=== PATIENT | male | born 1995 | race Caucasian/White ===

== ENCOUNTER 2024-02-05 13:09 | Emergency (ER) | payer MEDICAID, SELFPAY ==
--- NOTE | ~2024-02-05 | CT_ITS ---
EXAMINATION: CT HEAD WITHOUT CONTRAST CT FACE WITHOUT CONTRAST CT CERVICAL SPINE WITHOUT CONTRAST CLINICAL INFORMATION: Hockey puck to face. Question fracture. COMPARISON: No relevant prior imaging. TECHNIQUE: Stamp Presser images were obtained. CT imaging of the head, face, and cervical spine was performed without contrast. Data was reformatted into multiplanar images at the acquisition station. This CT examination was performed using dose optimization techniques as appropriate, including one or more of the following: Automated exposure control, iterative reconstruction, and adjustment of technique factors (mA and/or kVp) according to patient size (this includes techniques or standardized protocols for targeted exams where dose is matched to indication/reason for exam). Fleischner Society criteria for the followup of incidental pulmonary nodules was implemented if appropriate. DLP: 1485 mGy-cm. FINDINGS: Head: There is no acute intracranial hemorrhage or abnormal extra-axial collection. No intracranial mass effect or midline shift. Lateral and third ventricles are normal. No hydrocephalus. Martin-white matter differentiation is preserved and there is no evidence of acute territorial infarct. The calvarium and skull base are intact. Mastoid air cells and middle ear cavities are well aerated. Face: There is an acute minimally displaced fracture of the left nasal bone there is also a suspected nondisplaced fracture of the nasal spine. The zygomatic arches and pterygoid processes are intact. There are multiple fractured or luxated mandibular teeth. For instance the left mandibular canine is fracture best visualized on sagittal image 81 of 200 series 24. The central mandibular incisors are posteriorly luxated. The left mandibular incisor is absent. The mandible is otherwise intact. Globes and extraocular muscles are symmetric. No abnormal retrobulbar inflammation or hematoma. Lamina papyracea and orbital floors are intact and there is no evidence of acute orbital blowout fracture. Paranasal sinuses are well aerated and are of the major paranasal sinus and pathways are patent. Cervical spine: Alignment is normal. Vertebral body heights are preserved. No acute fracture. No abnormal prevertebral soft tissue swelling. Grossly no spinal canal compromise. Visualized soft tissues of the neck are normal. No pathologically enlarged cervical lymph nodes. Lung apices are clear. CT/CT head/brain wo IV con IMPRESSION: There is an acute minimally displaced fracture of the left nasal bone and a suspected nondisplaced fracture of the nasal spine. There are multiple fractured or luxated mandibular teeth. Otherwise unremarkable examination. No acute intracranial hemorrhage. No acute cervical spine fracture.
--- NOTE | ~2024-02-05 | CT_ITS ---
EXAMINATION: CT HEAD WITHOUT CONTRAST CT FACE WITHOUT CONTRAST CT CERVICAL SPINE WITHOUT CONTRAST CLINICAL INFORMATION: Hockey puck to face. Question fracture. COMPARISON: No relevant prior imaging. TECHNIQUE: Security Services Manager images were obtained. CT imaging of the head, face, and cervical spine was performed without contrast. Data was reformatted into multiplanar images at the acquisition station. This CT examination was performed using dose optimization techniques as appropriate, including one or more of the following: Automated exposure control, iterative reconstruction, and adjustment of technique factors (mA and/or kVp) according to patient size (this includes techniques or standardized protocols for targeted exams where dose is matched to indication/reason for exam). Fleischner Society criteria for the followup of incidental pulmonary nodules was implemented if appropriate. DLP: 1485 mGy-cm. FINDINGS: Head: There is no acute intracranial hemorrhage or abnormal extra-axial collection. No intracranial mass effect or midline shift. Lateral and third ventricles are normal. No hydrocephalus. Martin-white matter differentiation is preserved and there is no evidence of acute territorial infarct. The calvarium and skull base are intact. Mastoid air cells and middle ear cavities are well aerated. Face: There is an acute minimally displaced fracture of the left nasal bone there is also a suspected nondisplaced fracture of the nasal spine. The zygomatic arches and pterygoid processes are intact. There are multiple fractured or luxated mandibular teeth. For instance the left mandibular canine is fracture best visualized on sagittal image 81 of 200 series 24. The central mandibular incisors are posteriorly luxated. The left mandibular incisor is absent. The mandible is otherwise intact. Globes and extraocular muscles are symmetric. No abnormal retrobulbar inflammation or hematoma. Lamina papyracea and orbital floors are intact and there is no evidence of acute orbital blowout fracture. Paranasal sinuses are well aerated and are of the major paranasal sinus and pathways are patent. Cervical spine: Alignment is normal. Vertebral body heights are preserved. No acute fracture. No abnormal prevertebral soft tissue swelling. Grossly no spinal canal compromise. Visualized soft tissues of the neck are normal. No pathologically enlarged cervical lymph nodes. Lung apices are clear. CT/CT cervical spine wo IV con IMPRESSION: There is an acute minimally displaced fracture of the left nasal bone and a suspected nondisplaced fracture of the nasal spine. There are multiple fractured or luxated mandibular teeth. Otherwise unremarkable examination. No acute intracranial hemorrhage. No acute cervical spine fracture.
[2024-02-05 13:14] VITALS: BP 125/89; PULSE 78; RESP 20; TEMP 36.8; O2SAT 100; BMI 28.0
--- NOTE | 2024-02-05 13:24 | ED_ITS ---
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 He immediately had pain, and bleeding to this area. He denies hitting his head or loss of consciousness. He is reporting 10/10 pain, worsening with movement of his teeth. Denies any headaches, dizziness, blurred vision, chest pain, shortness of breath, abdominal pain, nausea, vomiting or diarrhea. Denies any other complaints or concerns at this time. MD complaint: Dental pain Onset (ago): hour(s) Location: face Radiation: non-radiation Severity: moderate Quality: stabbing Pain Consistency: constant Relieving factors: none Exacerbating factors: none Associated symptoms: denies other symptoms Treatments prior to arrival: none Related Data Allergies Allergy/AdvReac Type Severity Reaction Status Date / Time cephalexin [From Keflex] Allergy Hives Verified 02/05/24 13:19 sulfamethoxazole Allergy Hives Verified 02/05/24 13:19 [From Bactrim] trimethoprim [From Bactrim] Allergy Hives Verified 02/05/24 13:19 Review of Systems 2 Review of Systems: Yes all other systems are reviewed and are negative Constitutional: Constitutional: Reports as per [facility] Past Medical History Attestation statement: The following information was validated with the patient. Social History Social History Advance Directives: No Advance Directives Information Provided: Yes Physical Exam ED Vital Signs: Vital Signs - 24 hr 02/05/24 13:14 02/05/24 14:50 02/05/24 15:59 Temperature 98.3 F Pulse Rate 78 70 Respiratory Rate 20 16 18 Blood Pressure 125/89 Pulse Oximetry 100 96 Oxygen Delivery Method Room Air Room Air 02/05/24 17:05 Temperature 98.5 F Pulse Rate 80 Respiratory Rate 18 Blood Pressure 120/70 Pulse Oximetry 98 Oxygen Delivery Method Room Air BMI result Body Mass Index 28.0 Const General: cooperative, comfortable and no acute distress Orientation/consciousness: patient oriented x3 Limitations: no limitations HENMT Other: No septal hematoma noted tenderness palpation along the nasal bridge. Head: Yes normal to inspection, Yes normocephalic, No Thompson's sign and No hematoma Ears: hearing grossly normal bilaterally and TM's normal bilaterally General nose exam: Normal external nose present Face and sinus: Yes normal facial exam Mouth: Normal oral and palatal mucosa present, oropharynx normal and moist mucous membranes Teeth image: 2 1. Teeth number 23, 24, 25 and 26 are displaced, full tooth exposed roots noted, extremely loose with mild bleeding noted. Exquisitely tender to palpation. Throat: Yes posterior oropharynx normal Eyes General: appearance normal, both eyes and all related structures Eyelids: Yes eyelids normal Conjunctivae: conjunctivae normal Sclerae: sclerae normal Pupils: Equal, round and reactive pupils present EOM: EOMs intact bilaterally Neck Neck: Yes normal visual inspection, Yes full ROM and Yes no lymphadenopathy Lymphatic: no lymphadenopathy noted Chest Chest palpation & inspection: normal inspection of the chest Resp Effort & Inspection: normal respiratory effort and able to speak in complete sentences Auscultation: clear to auscultation bilaterally, no crackles, no rales, no rhonchi and no wheezes Cardio Rate: regular rate Rhythm: regular rhythm Heart sounds: S1 normal heart sound present and S2 normal heart sound present GI Inspection: Yes normal to inspection Skin General skin exam: no rashes or lesions noted Trauma: no lacerations or abrasions Wounds: no wounds Neuro General: patient oriented x3 and moves all extremities Cranial nerves: Yes Equal, round and reactive pupils present Extrem General: Yes normal to inspection Right upper extremity: normal to inspection Left upper extremity: normal to inspection Right lower extremity: normal to inspection Left lower extremity: normal to inspection Course Course Course Narrative: RME: 28 old male brought to the ED for trauma to lower lip. Patient hit by a puck in the face while playing hockey. Frontal lower tooth push back and upper tooth. Some are fake. Patient had the recently placed. We will do facial head cervical spine imaging to make sure there is no jaw fracture. Reevaluation(s) Reevaluation #1: Patient was seen and evaluated by my attending physician, Dr. Latham, recommends paging out to [facility] due to concerns for dental fractures and possible maxillary fracture. CT scan has not been read however given excessive delays and radiology reports, will attempt to transfer prior to receiving official read. Discussed with [facility] who has paging out to the oral surgeon and will return my phone call as soon as possible. Time: 14:36 Reevaluation #2: Discussed case with oral surgeon from [facility], Dr. Mistry. CT facial bones revealing an acute minimally displaced fracture of the left nasal bone and suspected nondisplaced fracture of the nasal spine. There are multiple fractured mandibular teeth. Oral surgeon states that he can not accepted direct admission, and patient would need a general dentist or radio intelligence operator to have this managed in this is something that he does not offer and would not be able to offer within the next 24 hours. He states that the patient may be transferred to [facility]'s Emergency Department for an ED to ED transfer and have a consult performed however states that he does not believe he would be able to fit him in nor do they have the tools to help patient given the circumstances. He recommends reaching out to [facility] for further management. Time: 15:45 Reevaluation #3: Spoke to [facility] transfer line, who accepts ED the ED transfer, accepting physician. Patient's symptoms have improved after receiving fentanyl 50 mcg is x2. Transfer of care initiated. Time: 16:19 Medications Administered Discontinued Medications Generic Name Dose Route Start Last Admin Trade Name Freq PRN Reason Stop Dose Admin Fentanyl 50 mcg 02/05/24 14:34 02/05/24 14:50 Fentanyl Citrate/Pf 100 Mcg/2 Ml Vial IVPUSH 02/05/24 14:35 50 mcg ONCE ONE Administration Protocol Fentanyl 50 mcg 02/05/24 15:08 02/05/24 15:43 Fentanyl Citrate/Pf 100 Mcg/2 Ml Vial IVPUSH 02/05/24 15:09 50 mcg ONCE ONE Administration Protocol Fentanyl 50 mcg 02/05/24 16:21 02/05/24 16:26 Fentanyl Citrate/Pf 100 Mcg/2 Ml Vial IVPUSH 02/05/24 16:22 50 mcg ONCE ONE Administration Protocol Fentanyl 50 mcg 02/05/24 16:57 02/05/24 17:02 Fentanyl Citrate/Pf 100 Mcg/2 Ml Vial IVPUSH 02/05/24 16:58 50 mcg ONCE ONE Administration Protocol Medical Decision Making Medical Decision Making [facility] Narrative: This is a 28-year-old male, with no known medical problems, who presents emergency department after being struck in the face by a hockey-stick. He denies hitting his head or loss of consciousness. On arrival, vital signs within normal limits. Patient with for very loose teeth, with route noted, only hanging on by small amount of gingival tissue. Active bleeding noted. Patient has tenderness palpation along the nasal bridge, no active bleeding. No septal hematoma. Plan: CT head, CT face, cervical spine, pain management. Differential Diagnosis Differential Diagnoses: The differential diagnosis associated with the presentation includes Fracture, dental fracture, mandibular fracture Admission/Observation Consideration of admission/observation: Escalation of care including admission/observation considered Patient requiring transfer of care given that we do not have oral or dental coverage here at the emergency room or [facility] Consult Healthcare Provider Management of the patient was discussed with: Teletypewriter Operator See MDM Lab Data [facility] Lab Attestation statement: I reviewed the patient's lab results. No leukocytosis, stable H&H, chemistry within normal limits, slight elevation in his liver enzymes, AST 93, ALT 49. O-positive blood type. 02/05/24 14:40 02/05/24 14:40 Labs: Lab Results 02/05/24 02/05/24 Range/Units 14:40 14:41 WBC 8.0 (4.8-10.8) X10*3/uL RBC 5.29 (4.60-5.80) X10*6/uL Hgb 15.6 (14.0-18.0) g/dl Hct 44.9 (42.0-52.0) % MCV 84.9 (80.0-98.0) fL MCH 29.5 (27.0-33.0) pg MCHC 34.7 (31.0-36.0) g/dl RDW 13.2 (11.0-16.0) % Plt Count 237 (160-400) X10*3/uL MPV 10.5 (9.4-12.4) fL Immature Gran % (Auto) 0.3 (0.0-0.4) % Neut % (Auto) 73.1 H (45-73) % Lymph % (Auto) 17.8 L (20-40) % [place] % (Auto) 7.3 (2-11) % Eos % (Auto) 0.6 (0-4) % Baso % (Auto) 0.9 (0-2) % Lymph # (Auto) 1.4 (1.2-4.9) X10*3/uL [place] # (Auto) 0.6 (0.1-1.2) X10*3/uL Eos # (Auto) 0.1 (0.0-0.4) X10*3/uL Baso # (Auto) 0.1 (0.0-0.2) X10*3/uL Abs Immat Gran (auto) 0.02 (0.00-0.03) X10*3/uL Absolute Neuts (auto) 5.9 (2.0-8.3) x10*3/uL Absolute Nucleated RBC 0.000 (0.0-0.012) X10*3/uL Nucleated RBC % (auto) 0.0 (0.0-0.2) /100WBC Sodium 140 (135-145) mmol/L Potassium 4.6 (3.3-5.1) mmol/L Chloride 107 (96-108) mmol/L Carbon Dioxide 25 (22-29) mmol/L Anion Gap 13 (12-20) BUN 13 (9-16) mg/dL Creatinine 0.94 (0.5-1.4) mg/dL Estim Creat Clear Calc 128.6 Estimated GFR > 60 Random Glucose 88 (60-115) mg/dL Calcium 10.2 (8.4-10.2) mg/dL Total Bilirubin 0.5 (0.0-1.0) mg/dL AST 93 H (5-37) U/L ALT 49 H (0-40) U/L Alkaline Phosphatase 73 (39-117) U/L Total Protein 8.1 H (6.5-8.0) g/dL Albumin 4.7 (3.5-5.0) g/dL Blood Type O Positive Antibody Screen NEGATIVE Independent Interpretation I performed an independent interpretation of an: CT Scan Interpretation: I reviewed the CT cervical spine, CT head, and CT face and agree with the radiology report Radiology Impression Discussion of test interpretation with radiology: I have reviewed the radiologist's reading. Radiologist Impression: CT/CT cervical spine wo IV con IMPRESSION: There is an acute minimally displaced fracture of the left nasal bone and a suspected nondisplaced fracture of the nasal spine. There are multiple fractured or luxated mandibular teeth. Otherwise unremarkable examination. No acute intracranial hemorrhage. No acute cervical spine fracture. Dictated By: Dontae Thomason MD Critical Care Time Critical Care Time Critical Care Time: Yes Total Critical Care Time: 45 Attestation: I have personally provided critical care time exclusive of time spent on separately billable procedures. Time includes review of lab data, radiology results, discussion with consultants, and monitoring for potential decompensation. Intervention performed as documented. Discharge Plan Discharge Clinical Impression: Fracture of multiple teeth, Fracture of nasal bone Patient Disposition: [facility] Transfer Details: [place] ED to ED transfer Interventions: Acute Care Transfer Worksheet (ED) Last Done: 02/05/24 17:05 Discharge Date/Time: 02/05/24 17:09 Print Language: Uruguayan
[2024-02-05 14:46] LABS: MANUAL DIFF FLAG NO
[2024-02-05 14:50] VITALS: RESP 16
[2024-02-05] MEDS: fentaNYL citrate/PF 100 MCG/2 ML VIAL 50 MCG IVPUSH ×4 (14:50→17:02)
[2024-02-05 14:53] LABS: Basophils Absolute Auto 0.1 X10*3/uL (0.0-0.2); Basophils Percent Auto 0.9 % (0-2); Eosinophils Absolute Auto 0.1 X10*3/uL (0.0-0.4); Eosinophils Percent Auto 0.6 % (0-4); Hematocrit 44.9 % (42.0-52.0); Hemoglobin 15.6 g/dl (14.0-18.0); Imm Gran Abs Auto 0.02 X10*3/uL (0.00-0.03); Imm Gran Pct Auto 0.3 % (0.0-0.4); Lymphocytes Absolute Auto 1.4 X10*3/uL (1.2-4.9); Lymphocytes Percent Auto 17.8 % (20-40); Mean Corpuscular HGB Conc 34.7 g/dl (31.0-36.0); Mean Corpuscular Hemoglobin 29.5 pg (27.0-33.0); Mean Corpuscular Volume 84.9 fL (80.0-98.0); Mean Platelet Volume 10.5 fL (9.4-12.4); Monocytes Absolute Auto 0.6 X10*3/uL (0.1-1.2); Monocytes Percent Auto 7.3 % (2-11); Neutrophils Absolute Auto 5.9 x10*3/uL (2.0-8.3); Neutrophils Percent Auto 73.1 % (45-73); Platelet Count 237 X10*3/uL (160-400); Red Blood Count 5.29 X10*6/uL (4.60-5.80); Red Cell Distribution Width 13.2 % (11.0-16.0)
[2024-02-05 15:03] LABS: Alanine Aminotransferase 49 U/L (0-40); Albumin Level 4.7 g/dL (3.5-5.0); Alkaline Phosphatase 73 U/L (39-117); Anion Gap 13 (12-20); Aspartate Amino Transferase 93 U/L (5-37); Bilirubin Total 0.5 mg/dL (0.0-1.0); Blood Urea Nitrogen 13 mg/dL (9-16); Calcium 10.2 mg/dL (8.4-10.2); Carbon Dioxide 25 mmol/L (22-29); Chloride 107 mmol/L (96-108); Creatinine Clr Calc Pharmacy 128.6; Estimated Glomerular Filt Rate > 60; Glucose Random 88 mg/dL (60-115); Potassium 4.6 mmol/L (3.3-5.1); Sodium 140 mmol/L (135-145); Total Protein 8.1 g/dL (6.5-8.0)
[2024-02-05 15:59] VITALS: PULSE 70; RESP 18; O2SAT 96
[2024-02-05 17:05] VITALS: BP 120/70; PULSE 80; RESP 18; TEMP 36.9; O2SAT 98
== END 2024-02-05 17:09 | disposition short-term general hospital (02) ==
PROVIDERS: Physician Assistant Medical; Emergency Provider Student in an Organized Health Care Education/Training Program; PCP Family Medicine
DX: S02.2XXA Fracture of nasal bones, initial encounter for closed fracture (principal); S02.5XXA Fracture of tooth (traumatic), initial encounter for closed fracture; R51.9 Headache, unspecified; M54.2 Cervicalgia; Y29.XXXA Contact with blunt object, undetermined intent, initial encounter; Y93.22 Activity, ice hockey; Y92.330 Ice skating rink (indoor) (outdoor) as the place of occurrence of the external cause; Y99.8 Other external cause status; Z79.899 Other long term (current) drug therapy
CPT/HCPCS: 36415; 70450; 70486; 72125; 80053; 85025; 86850; 86900; 86901; 96374; 96376; 99285; J3010